=== PATIENT | male | born 1965 | race Caucasian/White ===

== ENCOUNTER 2017-08-05 19:05 | Emergency (ER) | payer OTHER ==
[~2017-08-05] VITALS: Ht 170.2 cm; Wt 75.0 kg
[2017-08-05 20:00] VITALS: BP 148/86
[2017-08-05] MEDS ORDERED: TETANUS, DIPHTHERIA, PERTUSSIS VAC/PF 0.5ML (>7YR OLD) IM ONE (20:30)
[2017-08-05] MEDS ORDERED: BACITRACIN ZINC OINT UDPKT TOP ONE (21:30)
== END 2017-08-05 22:43 | disposition home or self-care (01) ==
LOC: ER 19:20
DX: S51.812A Laceration without foreign body of left forearm, initial encounter (principal); F10.129 Alcohol abuse with intoxication, unspecified; Y90.6 Blood alcohol level of 120-199 mg/100 ml; W45.8XXA Other foreign body or object entering through skin, initial encounter; Y93.89 Activity, other specified; Y92.018 Other place in single-family (private) house as the place of occurrence of the external cause
CPT/HCPCS: 12002; 36415; 73110; 90471; 90715; 99285; G0482; X7700; Z7610